=== PATIENT | female | born 1950 | race Caucasian/White ===

== ENCOUNTER → 2018-01-22 | Outpatient (CLI) | payer MEDICARE, BC ==
[~2018-01-22] MED LIST: CALCITONIN-SAL3.7 ML INH; CALCIUM 600 +1 EAC1 PO; COD LIVER OIL1 EAC3 PO; COLACE100 MG PO; IBUPROFEN 600600 M1 PO; MIRALAX17 G1 PO; OXYCODONE HCL 55 MG PO; UNICOMPLEX M TA1 TA1 PO; XARELTO10 MG PO
== END ==
LOC: M.ULTRA 10:15
DX: N81.4 Uterovaginal prolapse, unspecified (principal); R10.2 Pelvic and perineal pain; M54.5 Low back pain

== ENCOUNTER → 2021-09-07 | Outpatient (CLI) | payer MEDICARE, BC | LOC: M.LAB 12:05 | PROVIDERS: ATTEND Internal Medicine Gastroenterology | DX: Z01.812 Encounter for preprocedural laboratory examination (principal); Z20.822 Contact with and (suspected) exposure to COVID-19 ==